=== PATIENT | male | born 1980 | race Caucasian/White ===

== ENCOUNTER 2023-07-21 23:07 | Emergency (ER) | payer MEDICAID, SELFPAY ==
[2023-07-21 23:22] VITALS: BP 132/100; PULSE 122; RESP 18; TEMP 37.3; O2SAT 99; BMI 25.1
--- NOTE | 2023-07-21 23:28 | CRLHL7_ITS ---
For Patients: As a result of the Century Cures Act, medical imaging exams and procedure reports are released immediately into your electronic medical record. You may view this report before your referring provider. If you have questions, please contact your health care provider. INDICATION: Headache for 2 days, cannot focus eyes TECHNIQUE: CT head without contrast. COMPARISON: None FINDINGS: CSF spaces: Within normal limits for age. Brain parenchyma: The dacosta-white differentiation is normal. No sign of hemorrhage or midline shift. Ill-defined 2.0 x 1.0 x 1.2 cm hypodensity in the left parietal occipital region, best seen image 42 series 2. Skull base and calvarium: Mucosal thickening in the bilateral maxillary sinuses. The mastoid air cells demonstrate no acute or significant findings. The visualized orbits are grossly unremarkable. No skull fractures. IMPRESSION: Ill-defined hypodensity in the left parietal occipital region. Recommend MRI with and without gadolinium for further evaluation. Please note that all CT scans at this facility use dose modulation, iterative reconstruction, and/or weight-based dosing when appropriate to reduce radiation dose to as low as reasonably achievable. Dictated by Nancy Ochoa MD @ 07/22/2023 12:39:48 AM (Electronically Signed)
--- NOTE | 2023-07-21 23:29 | ED.HA ---
HPI - Headache General Chief Complaint: Headache/Migraine Stated Complaint: Headache, having trouble with his vison,feet pain Time Seen by Provider: 07/21/23 23:14 History of Present Illness HPI Narrative: Patient is a 43-year-old gentleman comes in today not feeling well. He has had headache for last several days. He feels like his right eye is more blurry than normal although his chronic poorly controlled diabetes with neuropathy. He has had no chest pain no shortness of breath orthopnea no PND. Pulses 122 upon arrival. He has had no nausea no vomiting no fevers no chills. Also is complaining of chronic pain of his lower extremities secondary to his neuropathy with no skin breakdown. When asked with the things that bother in the most are he states that is the revision in the right eye the headache and the chronic neuropathy. Patient again is not compliant with his medical regiment and has been lost to follow-up. Related Data Home Medications Medication Instructions Recorded Confirmed metformin .ROUTE 07/21/23 Allergies Allergy/AdvReac Type Severity Reaction Status Date / Time codeine AdvReac Verified 07/21/23 23:25 Review of Systems Status of ROS: Reports: 10 or more systems reviewed and unremarkable except as noted in History and below [facility] Medical History Diabetes mellitus ?E11.9 - Type 2 diabetes mellitus without complications (ICD-10) Exam Narrative: Exam Narrative: EXAM GENERAL: Patient appears comfortable and well. LYMPH: No supraclavicular or cervical lymphadenopathy. SKIN: Visible skin seen during exam normal or with benign process only. EXT: No dependent lower extremity pedal edema. HEART: Regular rate and rhythm with no murmurs, rubs, or gallops. LUNGS: Clear to auscultation bilaterally with no crackles or wheezes. ABD: Soft, non tender, non distended. PSYCH: Good eye contact, speech is not pressured. Neurologic cranial nerves 2-12 grossly intact no focal defects. Const: Vital Signs, click to edit/add: Vital Signs - 24 hr 07/21/23 23:22 Temperature 99.1 F Pulse Rate [Pulse Oximeter] 122 H Respiratory Rate 18 Blood Pressure [Ri ght Upper Arm] 132/100 H Pulse Oximetry 99 Oxygen Delivery Me thod Room Air Course Course ED Course: Will start with CT of the head placed on IV give 1 L of normal saline obtain EKG CBC comprehensive metabolic panel. Vital Signs Vital signs: Initial Vital Signs Temperature 99.1 F 07/21/23 23:22 Temperature Source Temporal Artery Scan 07/21/23 23:22 Pulse Rate 122 H 07/21/23 23:22 Respiratory Rate 18 07/21/23 23:22 Blood Pressure 132/100 H 07/21/23 23:22 Blood Pressure Mean 110 H 07/21/23 23:22 Blood Pressure Position Sitting 07/21/23 23:22 Pulse Oximetry 99 07/21/23 23:22 Oxygen Delivery Method Room Air 07/21/23 23:22 Vital Signs Temperature 99.1 F 07/21/23 23:22 Pulse Rate 122 H 07/21/23 23:22 Respiratory Rate 18 07/21/23 23:22 Blood Pressure 132/100 H 07/21/23 23:22 Pulse Oximetry 99 07/21/23 23:22 Oxygen Delivery Method Room Air 07/21/23 23:22 Temperature 99.1 F 07/21/23 23:22 Pulse Rate 122 H 07/21/23 23:22 Respiratory Rate 18 07/21/23 23:22 Blood Pressure 132/100 H 07/21/23 23:22 Pulse Oximetry 99 07/21/23 23:22 Oxygen Delivery Method Room Air 07/21/23 23:22 Medications Administered Medications: Generic Name Dose Route Start Last Admin Trade Name Freq PRN Reason Stop Dose Admin Sodium Chloride 1,000 mls @ 1,000 mls/hr 07/21/23 23:29 07/22/23 00:43 0.9 % Sodium Chloride 1000 Ml IV 07/22/23 00:28 Infused .Q1H LASHELL Infusion MDM - Headache MDM Narrative Medical decision making narrative: Patient is a 43-year-old gentleman comes in with a host of complaints including headache changes vision chronic neuropathy and general malaise. This all appears related to his poorly managed diabetes mellitus. I did do an EKG does have sinus rhythm rate of 116. His labs are reasonably stable with the exception of blood sugar of nearly 600. Patient takes metformin at home his he is not certain whether he has insurance. I did sit down explain with him and his significant other and his mother that he needs insulin and we need to arrange CT of the head which showed slight irregularity in the left parietal occipital region. They do recommend outpatient MRI we will schedule that through the office when we see him back in follow-up to try to help with his blood sugars. I did recommend close outpatient follow-up so we can get him help that he needs. I did explain that I can work through any kind of public health insurance as well as through [facility] to try to get him insulin. I do not believe he needs any intervention now although his blood sugars shockingly high. A single dose of insulin is not going to do any good and he has no access to insulin as an outpatient. He will try to monitor his diet continue his metformin. He will follow-up with me closely in the clinic will try to go through the administrative hoops to get him the care that he needs. All questions are answered labs in CT reviewed. Lab Data Labs: Lab Results 07/21/23 Range/Units 23:36 WBC 9.80 (4.50-11.00) K/uL RBC 4.59 (4.30-5.90) m/uL Hgb 14.0 (13.5-17.5) gm/dL Hct 40.7 (37.0-53.0) % MCV 89 (80-100) fL MCH 31 (26-34) pg MCHC 34 (32-36) gm/dL RDW Coeff of Ant 11.6 (11.5-15.5) % Plt Count 262 (140-440) K/uL Neut % (Auto) 62.9 (42.0-72.0) % Lymph % (Auto) 27.8 (20-44) % [place] % (Auto) 6.3 (0.0-11.0) % Eos % (Auto) 2.4 (0.0-7.0) % Baso % (Auto) 0.5 (0.0-3.0) % Neut # (Auto) 6.16 (1.7-7.0) K/uL Lymph # (Auto) 2.72 (0.90-2.90) K/uL [place] # (Auto) 0.60 (0.00-0.90) K/UL Eos # (Auto) 0.24 (0.00-0.50) K/uL Baso # (Auto) 0.05 (0.00-0.30) K/uL Abs Immat Gran (auto) 0.01 (0.00-0.30) K/uL Imm/Tot Granulo (auto) 0.1 % Sodium 130 L (135-149) mmol/L Potassium 3.6 (3.6-5.1) mmol/L Chloride 93 L (96-114) mmol/L Carbon Dioxide 23 (20-32) mmol/L Anion Gap 14 (7-15) mEq/L BUN 10 (5-24) mg/dL Creatinine 0.6 (0.5-1.5) mg/dL Estimated Creat Clear 169.08 Estimated GFR 123 ml/min Glucose 583 H* (60-115) mg/dL Calcium 8.8 (8.4-10.6) mg/dL Total Bilirubin 0.2 (0.1-1.5) mg/dL AST 21 (12-35) U/L ALT 32 (4-50) U/L Alkaline Phosphatase 83 (40-150) U/L Total Protein 7.4 (6.0-8.3) g/dL Albumin 4.5 (3.3-5.0) g/dL Discharge Plan Discharge Clinical Impression: Diabetes mellitus Patient Disposition: Home, Self-Care Condition: Stable Instructions: Type 2 Diabetes Management for Adults (ED) Additional Instructions: Continue current care Follow-up closely with Dr. Gonzalez is clinic to try to get the insulin and other medications that you need. Consider contacting [facility]. Follow-up sooner if problems develop. Activity Level: No Restrictions Discharge Diet: Regular Prescriptions: No Action metformin .ROUTE Follow Up/Referrals: Provider,Not a Local [Primary Care Provider] - Stand Alone Forms: [employer] Info Instructions
[2023-07-21] MEDS: 0.9 % SODIUM CHLORIDE 1000 ml 1,000 ML IV (23:44)
[2023-07-22 00:05] LABS: Basophils Absolute Auto 0.05 K/uL (0.00-0.30); Basophils Percent Auto 0.5 % (0.0-3.0); Chloride* 93 mmol/L (96-114); Eosinophils Absolute Auto 0.24 K/uL (0.00-0.50); Eosinophils Percent Auto 2.4 % (0.0-7.0); Hematocrit 40.7 % (37.0-53.0); Immature Granulocytes Abs Auto 0.01 K/uL (0.00-0.30); Immature Granulocytes Pct Auto 0.1 %; Lymphocytes Absolute Auto 2.72 K/uL (0.90-2.90); Lymphocytes Percent Auto 27.8 % (20-44); Mean Corpuscular HGB Conc 34 gm/dL (32-36); Mean Corpuscular Hemoglobin 31 pg (26-34); Mean Corpuscular Volume 89 fL (80-100); Monocytes Percent Auto 6.3 % (0.0-11.0); Neutrophils Absolute Auto 6.16 K/uL (1.7-7.0); Neutrophils Percent Auto 62.9 % (42.0-72.0); Platelet Count* 262 K/uL (140-440); RDW Coefficient of Variation % 11.6 % (11.5-15.5); Red Blood Count 4.59 m/uL (4.30-5.90)
[2023-07-22 00:06] LABS: Albumin* 4.5 g/dL (3.3-5.0); Potassium* 3.6 mmol/L (3.6-5.1); Sodium* 130 mmol/L (135-149)
[2023-07-22 00:08] LABS: Anion Gap 14 mEq/L (7-15); Carbon Dioxide* 23 mmol/L (20-32); Creatinine* 0.6 mg/dL (0.5-1.5); Est. Creatinine Clearance* 169.08; Estimated Glomerular Filt Rate 123 ml/min; Slide Review Reflex No
[2023-07-22 00:09] LABS: Alanine Aminotransferase* 32 U/L (4-50); Alkaline Phosphatase* 83 U/L (40-150); Aspartate Amino Transferase* 21 U/L (12-35); Bilirubin Total* 0.2 mg/dL (0.1-1.5); Blood Urea Nitrogen* 10 mg/dL (5-24); Calcium* 8.8 mg/dL (8.4-10.6); Total Protein* 7.4 g/dL (6.0-8.3)
[2023-07-22 00:11] LABS: Glucose* 583 mg/dL (60-115)
--- NOTE | 2023-07-22 01:02 | ED.NURSE ---
updated on pt R vision depth problems and pt requesting insulin RX, reister rx for lantus 10units HS on written script and okay to discharge
[2023-07-22 01:04] VITALS: BP 128/97; PULSE 101; RESP 16; TEMP 37.2; O2SAT 98
== END 2023-07-22 01:05 | disposition home or self-care (01) ==
PROVIDERS: Emergency Provider Internal Medicine
DX: E11.65 Type 2 diabetes mellitus with hyperglycemia (principal)
CPT/HCPCS: 36415; 70450; 80053; 85025; 93005; 99283; 99284; J7030

== ENCOUNTER 2023-08-07 16:05 | Outpatient (CLI) | payer MEDICAID, SELFPAY | END 2023-08-07 16:06 | disposition home or self-care (01) | LOC: NFLDREF 16:07 | PROVIDERS: Visit Provider Internal Medicine | DX: E11.9 Type 2 diabetes mellitus without complications (principal); Z79.4 Long term (current) use of insulin; Z79.84 Long term (current) use of oral hypoglycemic drugs | CPT/HCPCS: 82043; 82570 ==

== ENCOUNTER 2023-09-11 15:55 | Outpatient (CLI) | payer MEDICAID, SELFPAY | END 2023-09-11 15:56 | disposition home or self-care (01) | PROVIDERS: PCP Internal Medicine; Visit Provider Internal Medicine | DX: R10.9 Unspecified abdominal pain (principal); Z13.228 Encounter for screening for other metabolic disorders | CPT/HCPCS: 80053; 82150 ==

== ENCOUNTER 2023-09-19 12:39 | Outpatient (CLI) | payer MEDICAID, SELFPAY ==
--- NOTE | 2023-09-19 13:00 | CT_ITS ---
Final Report Patient: JOSE QUINONEZ Facility:?[facility] Patient ID:?[id number] Site Patient ID:?[id number]. Site :?[id number] Study:?CT Abdomen/Pelvis W/ 86CC ISOVUE 370-09/19/2023 1:49:47 PM Ordering Physician:FE Final Report: Indication: Abdominal pain Technique: Postcontrast CT abdomen and pelvis. 86 cc Isovue 370 intravenous contrast. Please note that all CT scans at this facility use dose modulation, iterative reconstruction, and/or weight-based dosing when appropriate to reduce radiation dose to as low as reasonably achievable. Comparison: None Findings: Calcified nodules are present within the left lower lobe representing sequela granulomatous disease. No pleural effusion. No intrahepatic mass. Gallbladder is normal. No calcified gallstones. Pancreas is within normal limits. Calcified granulomas in the spleen. Normal adrenal glands. Kidneys are within normal limits. Incidental simple cyst within the lower pole of the left kidney. No hiatal hernia. Stomach is normal. Normal duodenum and jejunum. Faint hyperdensities within the dependent bladder. The bladder wall is thickened measuring up to 7 millimeters. The prostate is not enlarged. Increased stool is present within the colon. No mechanical bowel obstruction. No inflammatory changes regarding the bowel. The appendix is absent. Normal ileum. No adenopathy. No fracture. Pars defects at L5. Slight anterolisthesis of L5 on S1. Impression: Diffuse bladder wall thickening measuring up to 7 millimeters which could be related to incomplete distention, however, can not exclude cystitis. No hydronephrosis. Small layering stones are present within the bladder. No renal stones. Normal ureters. Sequela of granulomatous disease. Increased stool in the colon consistent with constipation. No bowel obstruction. Please note that all CT scans at this facility use dose modulation, iterative reconstruction, and/or weight-based dosing when appropriate to reduce radiation dose to as low as reasonably achievable. Dictated by Dean Veloz MD @ 09/20/2023 9:21:33 AM (Electronic Signature)
== END 2023-09-19 12:40 | disposition home or self-care (01) ==
LOC: CT 12:42
PROVIDERS: PCP Internal Medicine; Visit Provider Internal Medicine
DX: R10.9 Unspecified abdominal pain (principal); N21.0 Calculus in bladder
CPT/HCPCS: 74177; Q9967

== ENCOUNTER 2023-09-26 19:45 | Emergency (ER) | payer MEDICAID, SELFPAY ==
[2023-09-26 19:48] VITALS: BP 138/86; PULSE 138; RESP 20; TEMP 36.9; O2SAT 100; BMI 24.4
--- NOTE | 2023-09-26 20:47 | ED.GENADULT ---
HPI - General Adult General Date Seen: 09/26/23 Chief complaint: Abdominal Pain Stated complaint: Abdominal pain Time Seen by Provider: 09/26/23 20:16 Source: patient, RN notes reviewed and old records reviewed Mode of arrival: ambulatory Limitations: no limitations History of Present Illness HPI narrative: Patient is a 43-year-old man who is here with his girlfriend for evaluation of chronic abdominal pain. Pain is in bilateral lower quadrants, not associated with nausea, vomiting, diarrhea, bloody stools, fevers, urinary symptoms or other complaints. He has had problems with this abdominal pain for at least 7 years, was seen previously at [facility] and [facility]. He has seen GI, has had a colonoscopy, which he reports was normal. He has recently switched his care to our clinic and saw Dr. Gonzalez a week ago with complaints of abdominal pain. He had labs at that time as well as a CT of the abdomen and pelvis. CT scan did not show obvious cause for his abdominal pain, he did have some thickening of the bladder wall and some small layering stones in the bladder but no ureteral stones, increased stool burden consistent with some constipation but no obstruction, no other acute findings. He tells me that he is had at least for the past month abdominal pain every day, it usually bothers him more when he lays down to go to bed. He keeps him up at night. He was given Ultram by Dr. Gonzalez but he says that does not help. He says he was given multiple different medications previously by other doctors but none have helped with the pain. He did at some point decided to stop taking any medications including those for his diabetes and thus presented to the ER recently with uncontrolled diabetes. He is on insulin now with improvement in blood sugars. He also was referred to a pain clinic at 1 point, his girlfriend says that they wanted him to ?jump through all kinds of hoops including mental health and physical therapy and he did feel that that had anything to do with his abdominal pain so he refused to do it. Related Data Previous Rx's Medication Instructions Recorded insulin aspart U-100 100 unit/mL 15 unit (0.15 mL) subcut TID #10 mL 08/28/23 subcutaneous solution pen needle, diabetic 31 gauge x #1,200 ea 09/04/2312/13 (Lite Touch Insulin Pen Dudley) ultra fine pen needle #1 ea 09/04/23 blood-glucose meter,continuous #1 ea 09/05/23 (Dexcom G7 Mold Tooler) blood-glucose transmitter (Dexcom #1 ea 09/05/23 G6 Transmitter device) blood-glucose sensor (Dexcom G7 #1 ea 09/11/23 Sensor device) tramadol 50 mg tablet 50 mg PO Q8H PRN pain #30 tabs 09/22/23 Allergies Allergy/AdvReac Type Severity Reaction Status Date / Time codeine AdvReac Verified 09/19/23 13:27 Review of Systems Status of ROS: Reports: 10 or more systems reviewed and unremarkable except as noted in History and below [facility] Medical History Abdominal pain ?R10.9 - Unspecified abdominal pain (ICD-10) IDDM (insulin dependent diabetes mellitus) Diabetes mellitus ?E11.9 - Type 2 diabetes mellitus without complications (ICD-10) Social History Smoking Status: Current every day smoker What tobacco products do you use: cigarettes Smoking packs per day: 0.5 Smoking cigarettes per day: 10.0 Do you use any of these nicotine containing products: None Second hand tobacco smoke exposure: No How often do you have a drink containing alcohol: never AUDIT-C Alcohol total score: 0 Non-prescribed substance use: marijuana (any form) Non-prescribed substance use details: occasional thc Little interest or pleasure in doing things: not at all Feeling down, depressed, or hopeless: not at all Exam Narrative: Exam Narrative: Vital signs as noted above. In general, an alert, well-appearing patient. Head: Normocephalic, atraumatic. Eyes: Pupils are equal reactive. Extraocular movements are full. Conjunctivae are normal. ENT: Mucous membranes are moist. Throat is normal. Neck: Supple without lymphadenopathy. Heart: Tachycardic and regular. No obvious murmur. Lungs: Clear bilaterally. No increased work of breathing, crackles or wheezes. Abdomen: Soft and nondistended. No organomegaly. A little bit of mild diffuse tenderness without rebound guarding or rigidity. No CVA tenderness. Extremities: Well perfused. No edema. No calf tenderness. Pulses intact. Neurologic: Patient is alert and oriented to person and place. Speech is fluent. Face is symmetric. Moves all extremities equally. Affect: Normal. Skin: Warm and dry. Well perfused. Const: Vital Signs, click to edit/add: Vital Signs - 24 hr 09/26/23 19:48 Temperature 98.5 F Pulse Rate [Pulse Oximeter] 138 H Respiratory Rate 20 Blood Pressure [Ri ght Upper Arm] 138/86 Pulse Oximetry 100 Oxygen Delivery Me thod Room Air Documenting provider has reviewed patient's vital signs: yes Course Course ED Course: I had a long conversation with the patient and his girlfriend. I have reviewed his records, reviewed his recent CT scan. I do not think his chronic abdominal pain is related to urinary tract infection. Constipation may potentially be playing a role. He does note that he has had small bowel movements recently although he does not feel that he is constipated. I had offered to do labs, discussed with him that I would not suggest repeating a CT scan unless labs were significantly changed. Also reviewed with him that I think outpatient follow-up will almost certainly be needed in his case, that I doubt I will have a clear definitive diagnosis for him based on what I can do in the emergency department. I had ordered labs including a UA, and some Toradol and fluids for him. He is tachycardic here, it seems as if he is frequently tachycardic and he says that is not unusual for him. I had also ordered an EKG just to document that this was in fact a sinus tachycardia. After I left the room, they approached the nurse and said that he would prefer to just go home and contact Dr. Gonzalez is clinic tomorrow. His girlfriend said that they were under the impression that he would be given pain control here and since it did not appear that I was planning to prescribe anything they would just as soon wait and talk to Dr. Gonzalez tomorrow. Overall, given that this is a chronic problem I think that is reasonable. Certainly for worsening or new symptoms such as vomiting, fevers, etcetera I would suggest returning to the ER. Otherwise, call clinic tomorrow. Vital Signs Vital signs: Initial Vital Signs Temperature 98.5 F 09/26/23 19:48 Temperature Source Temporal Artery Scan 09/26/23 19:48 Pulse Rate 138 H 09/26/23 19:48 Pulse Rhythm Regular 09/26/23 19:48 Respiratory Rate 09/26/23 19:48 Blood Pressure 138/86 09/26/23 19:48 Blood Pressure Mean 103 09/26/23 19:48 Blood Pressure Position Sitting 09/26/23 19:48 Pulse Oximetry 100 09/26/23 19:48 Oxygen Delivery Method Room Air 09/26/23 19:48 Vital Signs Temperature 98.5 F 09/26/23 19:48 Pulse Rate 138 H 09/26/23 19:48 Respiratory Rate 20 09/26/23 19:48 Blood Pressure 138/86 09/26/23 19:48 Pulse Oximetry 100 09/26/23 19:48 Oxygen Delivery Method Room Air 09/26/23 19:48 Temperature 98.5 F 09/26/23 19:48 Pulse Rate 138 H 09/26/23 19:48 Respiratory Rate 20 09/26/23 19:48 Blood Pressure 138/86 09/26/23 19:48 Pulse Oximetry 100 09/26/23 19:48 Oxygen Delivery Method Room Air 09/26/23 19:48 Discharge Plan Discharge Clinical Impression: Abdominal pain, chronic, bilateral lower quadrant Patient Disposition: Home, Self-Care Condition: Stable Prescriptions: No Action (DME) Dexcom G7 Sensor Device See Rx Instructions .Route Qty: 1 0RF Rx Instructions: As directed insulin aspart U-100 100 unit/mL solution 15 unit subcut TID Qty: 10 3RF (DME) pen needle, diabetic [Lite Touch Insulin Pen [place]] 31 gauge x 5/16 needle See Rx Instructions .Route Qty: 1200 0RF Rx Instructions: As directed (DME) ultra fine pen needle See Rx Instructions .Route .MEDSUPPLY Qty: 1 6RF Rx Instructions: Aspart 50 Units TID & [id number]; (DME) Dexcom G7 Mold Tooler Misc See Rx Instructions .Route Qty: 1 0RF Rx Instructions: As directed (DME) Dexcom G6 Transmitter Device See Rx Instructions .Route Qty: 1 3RF Rx Instructions: Please issue G7 transmitter. Use As directed tramadol 50 mg tablet 50 mg PO Q8H PRN (Reason: pain) Qty: 30 0RF Follow Up/Referrals: Carlos Gonzalez MD [Primary Care Provider] - Stand Alone Forms: [employer] Info Instructions
--- NOTE | 2023-09-26 21:08 | ED.NURSE ---
Patient departed AMA the ER at 1850 with out any testing that was recommended by the ER physician.
== END 2023-09-26 21:12 | disposition left against medical advice (07) ==
PROVIDERS: Emergency Provider Emergency Medicine; PCP Internal Medicine
DX: R10.31 Right lower quadrant pain (principal); R10.32 Left lower quadrant pain
CPT/HCPCS: 80048; 80076; 83605; 83690; 84443; 85025; 85651; 86140; 99283; 99284